=== PATIENT | male | born 1980 | race Caucasian/White ===

== ENCOUNTER → 2018-10-04 | Outpatient (CLI) | payer BC ==
--- NOTE | 2018-10-04 09:18 | CT ---
EXAMINATION TYPE: CT hand RT wo con DATE OF EXAM: 10/04/2018 COMPARISON: HISTORY: Pain Rt hand CT DLP: 178.1 mGycm Automated exposure control for dose reduction was used. Unenhanced CT of the right hand was performed with bone and soft tissue window settings submitted. Ax ial sagittal and coronal images are reviewed. FINDINGS: There is comminuted fracture at the base of the fifth metacarpal with displacement of approximately 6 mm. The fifth metacarpal is displaced in an ulnar direction by approximately 6 mm. Fracture extends intra-articularly. There appears to be small chip fracture component arising from the adjacent hamate . There is soft tissue edema noted. Ligamentous and tendinous structures poorly evaluated. No additio nal fracture seen at this time. IMPRESSION: COMMINUTED FRACTURE AT THE BASE OF THE FIFTH METACARPAL WITH THE THE FIFTH METACARPAL BEING DISPLACED IN AN ULNAR DIRECTION BY APPROXIMATELY 6 MM. INTRA-ARTICULAR EXTENSION AND SMALL CHIP COMPONENT NOTE D OF THE HAMATE.
== END | disposition home or self-care (01) ==
LOC: RADCTMAIN 06:53
PROVIDERS: ATTEND Orthopaedic Surgery
DX: S62.316A Displaced fracture of base of fifth metacarpal bone, right hand, initial encounter for closed fracture (principal)